=== PATIENT | female | born 1980 | race Caucasian/White ===

== ENCOUNTER 2016-12-16 12:01 | Emergency (ER) | payer BC, MEDICAID ==
[~2016-12-16] VITALS: Ht 162.6 cm; Wt 142.0 kg
[2016-12-16 12:40] LABS: CLARITY,URINE Cloudy; COLOR,URINE Brown; GLUCOSE, URINE (UA) Negative (Negative); LEUKOCYTE ESTERASE ,URINE 1+ (Negative); UROBILINOGEN,URINE 0.2 mg/dL (0.2-1.0)
[2016-12-16 12:43] LABS: BILIRUBIN,URINE 1+ (Negative)
[2016-12-16 12:48] LABS: URINE CENTRIFUGED VOLUME 10 mL
[2016-12-16 12:51] LABS: RBC,URINE >100 /HPF
[2016-12-16 13:36] VITALS: BP 137/86
== END 2016-12-16 13:35 | disposition home or self-care (01) ==
LOC: ED 12:05
DX: N30.01 Acute cystitis with hematuria (principal)
CPT/HCPCS: 81003; 81015; 87088; 99282; 99283